=== PATIENT | female | born 1955 | race Caucasian/White ===

== ENCOUNTER → 2024-11-05 10:05 | Outpatient (REF) | payer MEDICARE, BC, SELFPAY | LOC: WDC 10:05 | PROVIDERS: ATTENDING PHYSICIAN Obstetrics & Gynecology | DX: N64.4 Mastodynia (principal); N64.52 Nipple discharge | CPT/HCPCS: 76642; 77062; 77066 ==

== ENCOUNTER 2025-03-14 06:16 | Day surgery (SDC) | payer MEDICARE, BC, SELFPAY ==
[2025-02-25 14:05] VITALS: BMI 27.7
[2025-03-14] VITALS (10 sets, daily range): BP systolic 78–120; BP diastolic 47–73; BMI 27.7; BMI 29.1
[2025-03-14] MEDS: TYLENOL 1000 MG PO (08:19)
[2025-03-14 08:40] LABS: Glucose - Point of Care 166 mg/dl (70-99)
[2025-03-14] MEDS: NORMOSOL-R/PLASMALYTE-A 1000 IV (08:42)
--- NOTE | 2025-03-14 10:02 | W.IMMPOSTOP ---
Surgical Immed Post Op Note
-
Primary Surgeon: Tha
Assisting Surgeon: None
Pre-op Diagnosis: Change in right nipple
Post-op Diagnosis: Change in right nipple
Procedure Performed: Biopsy right nipple areolar complex
Anesthesia Type: TIVA
Specimen / Cultures: Portion of right nipple areolar complex
Estimated Blood Loss: 6cc
Complications: None
Operative Findings:None
--- NOTE | 2025-03-14 10:03 | OR.RPT ---
Operative Report
Operative Report
Date of procedure: 03/14/2025
Surgeon: Tha
Preoperative diagnosis: Change in right nipple areolar complex
Postoperative diagnosis: Same
Procedure: Biopsy of right nipple areolar complex
The patient is a 69-year-old female who developed an excoriated change on her right nipple areolar complex. This did not respond to topical steroid application and she presents for biopsy.
On the day of the procedure the patient presented to same-day surgical services unit. She was prepped and verified site and procedure. DVT and antibiotic prophylaxis were provided and she was transferred to the operating room.
In the supine position intravenous sedation was delivered and the right breast was prepped and draped in usual sterile fashion. Appropriate timeout procedure was performed by all team members. All tissues were anesthetized with 1% lidocaine plain
and a crescent wedge excision of the excoriated area of the right nipple complex was made sharply with the blade. This was excised using the cautery. Time out of body was noted and the specimen was sent for immediate pathologic fixation.
Hemostasis was maintained with the cautery. Marcaine 0.5% plain was instilled and the wound was closed using simple interrupted 3-0 plain on subcutaneous tissues and a running subcuticular 4 Monocryl on skin. Surgical glue and sterile compressive
dressings were applied. All sponge needle and instrument counts were correct and the patient was transferred to same-day surgical services in stable condition.
()
== END 2025-03-14 10:55 | disposition home or self-care (01) ==
LOC: SDS 06:16
PROVIDERS: ATTENDING PHYSICIAN Surgery; FAMILY PHYSICIAN Internal Medicine Endocrinology, Diabetes & Metabolism
DX: L40.8 Other psoriasis (principal); N64.52 Nipple discharge
CPT/HCPCS: 19120; 82962; 88305; 88342; 88360

== ENCOUNTER → 2025-04-02 13:31 | Outpatient (REF) | payer MEDICARE, BC, SELFPAY | LOC: HWRAD 13:31 | PROVIDERS: ATTENDING PHYSICIAN Internal Medicine Rheumatology | DX: M81.0 Age-related osteoporosis without current pathological fracture (principal) | CPT/HCPCS: 77080 ==